=== PATIENT | female | born 1950 | race Caucasian/White ===

== ENCOUNTER → 2017-03-06 | Outpatient (CLI) | payer OTHER | LOC: BRMIMAGING 14:40 | PROVIDERS: ATTEND Family Medicine | DX: Z12.31 Encounter for screening mammogram for malignant neoplasm of breast (principal) | CPT/HCPCS: G0202 ==

== ENCOUNTER → 2017-03-16 | Outpatient (CLI) | payer OTHER | LOC: BRMIMAGING 08:55 | PROVIDERS: ATTEND Family Medicine | DX: Z12.39 Encounter for other screening for malignant neoplasm of breast (principal); R92.8 Other abnormal and inconclusive findings on diagnostic imaging of breast | CPT/HCPCS: 76641; G0206 ==

== ENCOUNTER → 2017-03-27 | Outpatient (CLI) | payer OTHER | LOC: CIMAGING 16:04 | PROVIDERS: ATTEND Family Medicine | DX: M25.511 Pain in right shoulder (principal); M89.9 Disorder of bone, unspecified | CPT/HCPCS: 73030-PO ==

== ENCOUNTER 2018-08-11 16:42 | Inpatient (IN) | payer OTHER ==
[2018-08-11] MEDS ORDERED: NS 500 ML IV ONE (16:46)
[2018-08-11 17:19] LABS: PLATELET COUNT 322 10^3/uL (150-400)
--- NOTE | 2018-08-11 17:19 | EDPHY ---
H & P Time Seen by Provider: 08/11/18 16:46 HPI/ROS: HPI Black stool, lightheaded. 68-year-old female by private vehicle with her son. This patient reports that since she has noticed she has had black tarry stools. She reports she has had some associated constipation as well. She reports that today she noticed that she is feeling much more fatigued and noticed that she was getting short of breath with any physical exertion. She denies any significant abdominal pain. She has no prior history of gastrointestinal bleeding. Not taking Pepto-Bismol at this time. She is not on any anticoagulant medications. She takes an aspirin daily. No other antiplatelet agents. ROS: Constitutional: No fever, no chills. As above. Eyes: No discharge. No changes in vision. ENT: No sore throat. No nasal congestion or rhinorrhea. Respiratory: No cough. No shortness of breath. Cardiac: No chest pain, no palpitations. Gastrointestinal: No abdominal pain, no vomiting, no diarrhea. As above. Genitourinary: No hematuria. No dysuria or increased frequency with urination. Musculoskeletal: No back pain. No neck pain. No myalgias or arthralgias. Skin: No rashes. Neurological: No headache. No focal weakness or altered sensation. Past medical history: Hyperlipidemia, hypertension. Social history: Nonsmoker. No alcohol. Here with her son. Physical Exam: General Appearance: Alert, no distress. This patient is responding to questions appropriately and in full sentences. This patient appears well- hydrated and well-nourished. Eyes: Pupils equal and round no pallor or injection. No lid edema, erythema or injection. Respiratory: There are no retractions, lungs are clear to auscultation with good air movement bilaterally. Cardiovascular: Regular rate and rhythm. No murmur. Gastrointestinal: Abdomen is soft and nontender, no masses, bowel sounds normal. No focal tenderness at McBurney's point. No Lockwood sign. Rectal exam: Normal tone. No gross blood. Black melenic stool. Neurological: Motor sensory function is grossly intact. Cranial nerves are normal. Gait is normal. Skin: Warm and dry, no rashes. Musculoskeletal: Neck is supple and nontender. Extremities are symmetrical. All joints range without pain or impingement. Psychiatric: No agitation. No depression. Database: EKG: EKG time is 5:32 p.m.; EKG shows a narrow complex normal sinus rhythm with a ventricular rate of 74. The [place], QRS, QT intervals are within normal limits. There are no ST-T wave changes indicative of ischemic or injury pattern. No evidence of right heart strain. Interpreted by me. Imaging: Procedures: Emergency department course: Triage vital signs reviewed. She is afebrile. Room air pulse oximetry is 91%. IV was placed x2. The patient was started on IV normal saline with 500 cc to be given over the next hour. The patient's presentation is concerning for upper gastrointestinal bleeding. Type and cross has been ordered. She will be given IV Protonix. 5:40 p.m., discussed case with on-call hospitalist Dr. Jj. Case discussed in detail. She accepts this patient for admission. We will call gastroenterology for consultation on this patient. 5:50 p.m., the patient was re-evaluated, resting comfortably at this time. Blood pressure is currently 107/67. paint dipper shows a narrow complex sinus rhythm with ventricular rate of 72. Results of her diagnostic workup in the emergency department were discussed with her and her son. I discussed admission. All of her questions were answered. She is receiving her IV Protonix. 5:55 p.m., spoke with on-call observation nurse Dr. Narvaez. He will see this patient on consultation. Plan initially for upper endoscopy tomorrow morning. Plan discussed with the hospitalist Dr. Jj. The patient's remaining emergency department course under my care has been uneventful. The patient was admitted to the hospitalist service in stable condition. Differential Diagnosis: The differential diagnosis on this patient includes but is not limited to upper gastrointestinal bleeding, duodenal versus gastric ulcer. This represents a partial list of diagnoses considered. These considerations are based on history , physical exam, past history, reassessment and diagnostic testing. Smoking Status: Former smoker Constitutional: Initial Vital Signs Temperature (C) 36.6 C 08/11/18 16:46 Heart Rate 84 08/11/18 16:46 Respiratory Rate 18 08/11/18 16:46 Blood Pressure 119/81 H 08/11/18 16:46 O2 Sat (%) 91 L 08/11/18 16:46 O2 Delivery Mode Room Air O2 (L/minute) 2 Allergies/Adverse Reactions: No Known Allergies Allergy (Unverified 08/11/18 16:48) Home Medications: Medication Instructions Recorded Acetaminophen [Tylenol ES 500 mg 500 mg PO DAILY 08/11/18 (*)] Aspirin EC [Aspirin EC 81 mg (*)] 81 mg PO DAILY 08/11/18 Hydrochlorothiazide [HCTZ (*)] 25 mg PO HS 08/11/18 Ibuprofen [Motrin (*)] 200 mg PO DAILY 08/11/18 Lisinopril [Zestril 10 mg (*)] 10 mg PO DAILY 08/11/18 Lovastatin 40 mg PO HS 08/11/18 Medical Decision Making - Data Points Laboratory Results: Laboratory Results 08/12/18 07:53 08/12/18 04:59 08/11/18 17:00 Patient ABO/Rh O POSITIVE Antibody Screen NEGATIVE Crossmatch IS Only See Detail Medications Given: Acetaminophen (Tylenol) 650 mg PO Q4HRS PRN PRN Reason: Pain, Mild/Fever, Can Take PO Stop: 02/07/19 18:26 Last Admin: 08/13/18 13:59 Dose: 650 mg Ferric Sodium Gluconate Complex 125 mg/ Sodium Chloride 110 mls @ 110 mls/hr IV DAILY RUPESH Stop: 02/08/19 16:59 Last Admin: 08/13/18 08:12 Dose: 110 mls Pantoprazole Sodium (Protonix) 40 mg PO BID RUPESH Stop: 02/08/19 20:59 Last Admin: 08/13/18 08:12 Dose: 40 mg Pravastatin Sodium (Pravachol) 40 mg PO HS [facility] Stop: 02/07/19 20:59 Last Admin: 08/12/18 20:39 Dose: 40 mg Discontinued Medications Sodium Chloride (Ns) 500 mls @ 0 mls/hr IV ONCE ONE; Wide Open PRN Reason: Protocol Stop: 08/11/18 16:47 Last Admin: 08/11/18 17:30 Dose: 500 mls Sodium Chloride (Ns) 1,000 mls @ 150 mls/hr IV CONT RUPESH Stop: 02/07/19 18:29 Last Admin: 08/11/18 22:28 Dose: 1,000 mls Lactated Ringer's (Lr) 1,000 mls @ 25 mls/hr IV ONCALL ONE Stop: 08/14/18 01:43 Last Admin: 08/12/18 10:15 Dose: 1,000 mls Midazolam HCl (Versed) 2 mg IVP ONCALL ONE Stop: 08/12/18 10:01 Last Admin: 08/12/18 10:13 Dose: 2 mg Pantoprazole Sodium (Protonix) 80 mg IVP EDNOW ONE Stop: 08/11/18 17:42 Last Admin: 08/11/18 17:56 Dose: 80 mg Pantoprazole Sodium (Protonix) 40 mg IVP Q6H RUPESH Stop: 02/07/19 19:59 Last Admin: 08/12/18 07:58 Dose: 40 mg Scopolamine HBr (Scopolamine Patch) 1 patch TD Q24H ONE Stop: 08/12/18 10:01 Last Admin: 08/12/18 10:12 Dose: 1 patch Departure - Departure Disposition: [facility] Acute Clinical Impression: Anemia, Gastrointestinal bleeding, upper Condition: Fair
[2018-08-11 17:25] LABS: INR 1.03 (0.83-1.16); PROTIME(PATIENT) 13.7 SEC (12.0-15.0)
[2018-08-11] MEDS ORDERED: PANTOPRAZOLE SODIUM 40 MG VIAL IVP ONE (17:41)
[2018-08-11] MEDS ORDERED: ONDANSETRON DISINTEGRATING 4 MG TAB PO PRN (18:27)
[2018-08-11] MEDS ORDERED: PROMETHAZINE HCL 25 MG/ML INJ IVP PRN (18:27)
[2018-08-11] MEDS ORDERED: HYDROCODONE/APAP 5/325 TAB PO PRN (18:27)
[2018-08-11] MEDS ORDERED: ONDANSETRON 4 MG/2 ML VIAL IVP PRN (18:27)
[2018-08-11] MEDS ORDERED: ALBUTEROL 3 ML DEYVIAL IH PRN (18:27)
[2018-08-11] MEDS ORDERED: ACETAMINOPHEN 325 MG TAB PO PRN (18:27)
[2018-08-11] MEDS ORDERED: oxyCODONE IR 5 MG TAB PO PRN (18:27)
[2018-08-11] MEDS ORDERED: NS 1,000 ML IV SCH (18:30)
--- NOTE | 2018-08-11 18:34 | PDGENHP ---
History and Physical - Chief Complaint black/tarry stool and fatigue - History of Present Illness 68 yo F with PMH that includes arthritis and GERD presents with c/o black/tarry stools for the last several days and starting today fatigue, DODSON and lightheadedness. Patient notes that she has never had similar issues in the past. She states that she takes ibuprofen and baby aspirin daily, but has cut way down on her ibuprofen from previously. She states that for years she was eating advil 'like it was candy' but this last March she was told by her PCP that she needs to cut down on ibuprofen and for that reason cut down to only 1 per day. She does have frequent symptoms of GERD that she has not taken anything for in the past. She currently notes some slight upper abdominal pain but otherwise denies pain. She otherwise notes that she looks pale and yellowish and continues to feel weak and lightheaded when she stands. History Information - Allergies/Home Medication List Allergies/Adverse Reactions: No Known Allergies Allergy (Unverified 08/11/18 16:48) Home Medications: Acetaminophen [Tylenol ES 500 mg (*)] 500 mg PO DAILY 08/11/18 [Last Taken Unknown] Aspirin EC [Aspirin EC 81 mg (*)] 81 mg PO DAILY 08/11/18 [Last Taken Unknown] Hydrochlorothiazide [HCTZ (*)] 25 mg PO HS 08/11/18 [Last Taken Unknown] Ibuprofen [Motrin (*)] 200 mg PO DAILY 08/11/18 [Last Taken Unknown] Lisinopril [Zestril 10 mg (*)] 10 mg PO DAILY 08/11/18 [Last Taken Unknown] Lovastatin 40 mg PO HS 08/11/18 [Last Taken Unknown] I have personally reviewed and updated: family history, medical history, social history, surgical history - Past Medical History arthritis, GERD, hypertension, hyperlipidemia - Surgical History Additional surgical history: TKA - Family History Positive for: non-pertinent - Social History Smoking Status: Former smoker Alcohol Use: Rarely Drug Use: None Additional social history: lives independently, accompanied by her son Review of Systems Review of Systems: ROS: 10pt was reviewed & negative except for what was stated in HPI & below Physical Exam Physical Exam: Temp Pulse Resp BP Pulse Ox 36.6 C 76 16 117/65 97 08/11/18 16:46 08/11/18 17:59 08/11/18 17:59 08/11/18 17:59 08/11/18 17:59 Constitutional: no apparent distress, appears nourished Eyes: PERRL, pale conjunctiva Ears, Nose, Mouth, Throat: moist mucous membranes, hearing normal Cardiovascular: regular rate and rhythym, no murmur, rub, or gallop, edema Respiratory: no respiratory distress, no rales or rhonchi Gastrointestinal: normoactive bowel sounds, soft, non-tender abdomen Genitourinary: no bladder tenderness Skin: warm, No normal color Musculoskeletal: full muscle strength, no muscle tenderness Neurologic: AAOx3 Psychiatric: interacting appropriately, not anxious, not encephalopathic Lab Data & Imaging Review 08/11/18 17:00 08/11/18 17:00 WBC 10.62 10^3/uL (3.80-9.50) H 08/11/18 17:00 RBC 2.77 10^6/uL (4.18-5.33) L 08/11/18 17:00 Hgb 8.8 g/dL (12.6-16.3) L 08/11/18 17:00 Hct 26.1 % (38.0-47.0) L 08/11/18 17:00 MCV 94.2 fL (81.5-99.8) 08/11/18 17:00 MCH 31.8 pg (27.9-34.1) 08/11/18 17:00 MCHC 33.7 g/dL (32.4-36.7) 08/11/18 17:00 RDW 13.2 % (11.5-15.2) 08/11/18 17:00 Plt Count 322 10^3/uL (150-400) 08/11/18 17:00 MPV 9.3 fL (8.7-11.7) 08/11/18 17:00 Neut % (Auto) 46.7 % (39.3-74.2) 08/11/18 17:00 Lymph % (Auto) 43.3 % (15.0-45.0) 08/11/18 17:00 Merrick % (Auto) 6.9 % (4.5-13.0) 08/11/18 17:00 Eos % (Auto) 1.7 % (0.6-7.6) 08/11/18 17:00 Baso % (Auto) 0.9 % (0.3-1.7) 08/11/18 17:00 Nucleat RBC Rel Count 0.0 % (0.0-0.2) 08/11/18 17:00 Absolute Neuts (auto) 4.96 10^3/uL (1.70-6.50) 08/11/18 17:00 Absolute Lymphs (auto) 4.60 10^3/uL (1.00-3.00) H 08/11/18 17:00 Absolute Monos (auto) 0.73 10^3/uL (0.30-0.80) 08/11/18 17:00 Absolute Eos (auto) 0.18 10^3/uL (0.03-0.40) 08/11/18 17:00 Absolute Basos (auto) 0.10 10^3/uL (0.02-0.10) 08/11/18 17:00 Absolute Nucleated RBC 0.00 10^3/uL (0-0.01) 08/11/18 17:00 Immature Gran % 0.5 % (0.0-1.1) 08/11/18 17:00 Immature Gran # 0.05 10^3/uL (0.00-0.10) 08/11/18 17:00 PT 13.7 SEC (12.0-15.0) 08/11/18 17:00 INR 1.03 (0.83-1.16) 08/11/18 17:00 APTT 23.4 SEC (23.0-38.0) 08/11/18 17:00 Sodium 137 mEq/L (135-145) 08/11/18 17:00 Potassium 3.6 mEq/L (3.5-5.2) 08/11/18 17:00 Chloride 106 mEq/L (97-110) 08/11/18 17:00 Carbon Dioxide 24 mEq/l (22-31) 08/11/18 17:00 Anion Gap 7 mEq/L (6-14) 08/11/18 17:00 BUN 35 mg/dL (7-23) H 08/11/18 17:00 Creatinine 1.1 mg/dL (0.6-1.0) H 08/11/18 17:00 Estimated GFR 50 08/11/18 17:00 Glucose 111 mg/dL (70-100) H 08/11/18 17:00 Calcium 8.9 mg/dL (8.5-10.4) 08/11/18 17:00 Total Bilirubin 0.2 mg/dL (0.1-1.4) 08/11/18 17:00 Conjugated Bilirubin 0.2 mg/dL (0.0-0.5) 08/11/18 17:00 Unconjugated Bilirubin 0.0 mg/dL (0.0-1.1) 08/11/18 17:00 AST 23 IU/L (14-46) 08/11/18 17:00 ALT 24 IU/L (9-52) 08/11/18 17:00 Alkaline Phosphatase 75 IU/L (38-126) 08/11/18 17:00 Total Protein 6.6 g/dL (6.3-8.2) 08/11/18 17:00 Albumin 3.9 g/dL (3.5-5.0) 08/11/18 17:00 Stool Occult Bld Scrn POSITIVE (NEGATIVE) H 08/11/18 17:10 Patient ABO/Rh O POSITIVE 08/11/18 17:00 Antibody Screen NEGATIVE 08/11/18 17:00 Visualized and Interpreted Chest x-ray results: Yes Chest X-Ray results: no infiltrate Visualized and Interpreted EKG results: Yes EKG Interpretation: Positive for: normal sinsus rhythm Assessment & Plan Assessment: Anemia (Acute) Gastrointestinal bleeding, upper (Acute) 68 yo F with PMH of arthritis and GERD presenting with black/tarry stools and acute blood loss anemia # UGIB: presumed upper bleed given dark tarry stools, has a hx of heavy NSAID use but recently has cut down, likely due to upper bleed due to ulcer or gastritis. GI consulted with plan to perform EGD in am. IV PPI. Discussed with patient that both asa and advil will be contraindicated for some time after this # acute blood loss anemia: in the setting of above and hgb of 8 from previously normal, will trend h/h and transfuse if hgb < 7, hct < 21 # GERD: patient has a history of frequent untreated GERD in the setting of heavy NSAID and daily asa use, plan for egd in am as above, will likely need to dc on ppi # TEVIN: in the setting of GI bleed and poor po intake and likely HD mediated, holding HCTZ/lisinopril/ibuprofen and IVF overnight, recheck in am # HTN: BP has been low since arrival in the setting of GI bleed and hypovolemia , will hold antihypertensives for now # HLD: continue statin # arthritis: for which she has been taking ibuprofen for a long time as above, currently managing with lower dose ibuprofen and tylenol, discussed with her that she may need to discuss with her PCP alternative meds for pain if ibuprofen no longer an option # observation status # patient new to my care. Care plan reviewed with ER doctor including plans for GI consultation. Further hx obtained from patients son present at bedside.
--- NOTE | 2018-08-11 19:06 | CPEKG ---
Test Reason : OPEN Blood Pressure : / mmHG Vent. Rate : 074 BPM Atrial Rate : 074 BPM P-R Int : 161 ms QRS Dur : 088 ms QT Int : 407 ms P-R-T Axes : 075 038 039 degrees QTc Int : 452 ms Sinus rhythm Abnormal R-wave progression, early transition Confirmed by Emperatriz Steel ([id number]) on 08/11/2018 7:05:14 PM Referred By: Emperatriz Steel Confirmed By:Emperatriz Steel
[2018-08-11] MEDS: PRAVASTATIN SODIUM 40 MG TAB PO SCH (20:44)
[2018-08-11] MEDS: PANTOPRAZOLE SODIUM 40 MG VIAL IVP SCH (20:44)
[2018-08-12] MEDS: PANTOPRAZOLE SODIUM 40 MG VIAL IVP SCH ×2 (01:50→07:58)
[2018-08-12 05:33] LABS: PLATELET COUNT 253 10^3/uL (150-400)
--- NOTE | 2018-08-12 09:15 | HOSPPROG ---
Hospitalist Progress Note Assessment/Plan: 68 yo F w likely UGIB ugib: nsaids plus daily asa on ppi now, not as outpt egd today ABLA: yes source is upper gi tranfused for hg less than 7 asa therapy: has htn and hyperlipidemia no strong FH or personal h/o cad reasonable to hold osteoarthritis: nsaids on hold dispo: obs Subjective: no further melena Objective: Vital Signs Temp Pulse Resp BP Pulse Ox 37 C 71 18 101/59 L 97 08/12/18 08:39 08/12/18 08:39 08/12/18 08:39 08/12/18 08:39 08/12/18 08:39 Laboratory Results 08/12/18 07:53 08/12/18 04:59 08/11/18 08/12/18 08/13/18 05:59 05:59 05:59 Intake Total 400 1350 Balance 400 1350 PT 13.7 SEC (12.0-15.0) 08/11/18 17:00 INR 1.03 (0.83-1.16) 08/11/18 17:00 - Physical Exam Constitutional: no apparent distress, appears nourished Eyes: PERRL, anicteric sclera Ears, Nose, Mouth, Throat: moist mucous membranes, hearing normal Cardiovascular: regular rate and rhythym, no murmur, rub, or gallop Respiratory: no respiratory distress, no rales or rhonchi Gastrointestinal: normoactive bowel sounds, soft, non-tender abdomen Genitourinary: No mcqueen in urethra Skin: warm, normal color Musculoskeletal: full muscle strength, no muscle tenderness Neurologic: AAOx3 Psychiatric: interacting appropriately ICD10 Worksheet Patient Problems: Problems Problem Status Onset Anemia Acute Gastrointestinal bleeding, upper Acute
[2018-08-12] MEDS ORDERED: fentaNYL 100 MCG/2 ML INJ ONE (09:43)
[2018-08-12] MEDS ORDERED: LR 1,000 ML IV ONE (09:44)
[2018-08-12] MEDS ORDERED: PROPOFOL 200 MG/20 ML VIAL ONE (09:44)
[2018-08-12] MEDS ORDERED: SUCCINYLCHOLINE CHLORIDE 200 MG/10 ML SYR IVP ONE (09:46)
[2018-08-12] MEDS ORDERED: ROCURONIUM 50 MG/5 ML VIAL ONE (09:46)
[2018-08-12] MEDS ORDERED: MIDAZOLAM 2 MG/2 ML VIAL IVP ONE (10:00)
[2018-08-12] MEDS ORDERED: SCOPOLAMINE HYDROBROMIDE 1 MG/3 DAYS PATCH TD ONE (10:00)
--- NOTE | 2018-08-12 10:02 | PDANEPAE ---
ANE Past Medical History - Cardiovascular History Hx Hypertension: Yes Hx Arrhythmias: No Hx Chest Pain: No Hx Coronary Artery / Peripheral Vascular Disease: No Hx CHF / Valvular Disease: No Hx Palpitations: No - Pulmonary History Hx COPD: No Hx Asthma/Reactive Airway Disease: No Hx Oxygen in Use at Home: No Hx Sleep Apnea: No Sleep Apnea Screening Result - Last Documented: Negative - Neurologic History Hx Cerebrovascular Accident: No Hx Seizures: No Hx Dementia: No - Endocrine History Hx Diabetes: No - GI History GERD: moderate Hx Gastrointestinal Disorders: Yes Gastrointestinal History Comment: UGIB - Surgical History Prior Surgeries: hysterectomy, right knee replacement, back surgery (cyst removal) ANE Review of Systems Review of Systems: - Exercise capacity Exercise capacity: >=4 METS ANE Patient History - Allergies Allergies/Adverse Reactions: No Known Allergies Allergy (Unverified 08/11/18 16:48) - Home Medications Home medications: home medication list seen and reviewed Home Medications: Acetaminophen [Tylenol ES 500 mg (*)] 500 mg PO DAILY 08/11/18 [Last Taken Unknown] Aspirin EC [Aspirin EC 81 mg (*)] 81 mg PO DAILY 08/11/18 [Last Taken Unknown] Hydrochlorothiazide [HCTZ (*)] 25 mg PO HS 08/11/18 [Last Taken Unknown] Ibuprofen [Motrin (*)] 200 mg PO DAILY 08/11/18 [Last Taken Unknown] Lisinopril [Zestril 10 mg (*)] 10 mg PO DAILY 08/11/18 [Last Taken Unknown] Lovastatin 40 mg PO HS 08/11/18 [Last Taken Unknown] - NPO status NPO Status: no food or drink >8 hours NPO Since - Liquids (Date): 08/11/18 NPO Since - Liquids (Time): 23:33 NPO Since - Solids (Date): 08/11/18 NPO Since - Solids (Time): 18:00 - Anes Hx Anes Hx: post operative nausea - Smoking Hx Smoking Status: Former smoker - Alcohol Use Alcohol Use: Rarely ANE Labs/Vital Signs - Labs Result Diagrams: 08/12/18 07:53 08/12/18 04:59 - Vital Signs Vital Signs: reviewed preoperatively; see RN documention for details Blood Pressure: 101/59 Heart Rate: 71 Respiratory Rate: 20 O2 Sat (%): 97 Height: 160.02 cm Weight: 77.111 kg ANE Physical Exam - Airway Neck exam: FROM Mallampati Score: Class 1 - Pulmonary Pulmonary: clear to auscultation - Cardiovascular Cardiovascular: regular rate and rhythym - ASA Status ASA Status: III ANE Anesthesia Plan Anesthesia Plan: general endotracheal anesthesia
[2018-08-12] MEDS ORDERED: PHENYLEPHRINE 10 MG/ML SDV ONE (10:14)
--- NOTE | 2018-08-12 10:26 | GCON ---
GI CONSULTATION REFERRING PHYSICIAN: Tammie Trejo MD REASON FOR CONSULTATION: Melena and fatigue. HISTORY OF PRESENT ILLNESS: The patient is a 68-year-old female with longstanding rheumatoid arthrit is, essential hypertension, and hyperlipidemia who has been on chronic NSAIDs for many years who has had intermittent "heartburn" symptoms over the last several weeks who presented with passage of black tarry stools several days ago, followed by fatigue, shortness of breath, and lightheadedness. She was found to be anemic with a hemoglobin of 8.8 on presentation, was admitted to the hospital for IV hydration and p.o. and IV PPI therapy. She does have no prior history of peptic ulcer disease. She has had no prior EGD. She did state she had a screening colonoscopy approximately 8 years ago in [facility], at which time she had "polyps" removed. She does not recall if these were adenomatous or hyper plastic. MEDICATIONS: Prior to admission: Ecotrin 81 mg p.o. daily, hydrochlorothiazide 25 mg p.o. q.h.s., i buprofen 200 mg p.o. daily, lisinopril 10 mg p.o. daily, lovastatin 40 mg p.o. q.h.s.. ALLERGIES: She has no known drug allergies. PAST MEDICAL HISTORY: Significant for essential hypertension, hyperlipidemia, rheumatoid arthritis, and intermittent heartburn. FAMILY HISTORY: Negative for peptic ulcer disease, GI malignancies, or GERD. SOCIAL HISTORY: She is a small former smoker. She rarely consumes alcohol. She is single, lives in [facility]. She has a son in the area. REVIEW OF SYSTEMS: Other than noted in the HPI were negative for comprehensive review of systems. EXAMINATION: VITAL SIGNS: Temperature 37.1, pulse 71 regular, blood pressure 101/59, respiratory ra te 18, O2 saturation 96% on room air. INTEGUMENT: Clear. HEENT: Head: Atraumatic, normocephalic. Pupils equal, round, reactive to light. EOMs intact. Sclerae nonicteric. Mucous membranes moist. Dentition good. Nares patent. NECK: Supple. Trachea midline. LYMPHATIC: No palpable cervical or axillary adenopathy. PULMONARY: Lungs are clear to percussion, auscultation. CARDIOVASCULAR: R egular rhythm, rate. Normal S1, S2 without murmur. Peripheral pulses strong bilaterally. No pedal edema. GASTROINTESTINAL: Abdomen supple. Positive bowel sounds. No liver, spleen tip palpable. T here is mild tenderness in the epigastrium to deep palpation without palpable mass or rebound. EXTRE MITIES: Without deformity. NEURO: Patient was alert, oriented x3. There are no focal neurologic d eficits. LABORATORY DATA: Hemoglobin on admission 8.8, with hydration this morning, hemoglobin 7.6, hematocri t 26.1 on admission, hematocrit 23.4 with hydration, platelets 253. Pro time 13.7, INR 1.03, PTT 23. 7. Electrolytes normal with exception of potassium 3.3, BUN was 35 on admission with a creatinine 1. 1, with hydration, BUN 21, creatinine 0.7, glucose is 94. LFTs normal. Stool is Hemoccult positive. IMPRESSION: 1. Melena with posthemorrhagic anemia and complaints of epigastric burning, rule out active peptic u lcer disease, rule out esophageal ulceration. 2. Hyperlipidemia. 3. Essential hypertension. 4. Rheumatoid arthritis. 5. Remote history of colon polyps of type unknown. RECOMMENDATIONS: 1. N.p.o. 2. IV PPI therapy. 3. Esophagogastroduodenoscopy with propofol anesthesia later today. 4. Will attempt to obtain her old colonoscopy records from her pet counselor in [place] from 8 years ago to determine appropriate followup interval for surveillance versus screening colonoscopy. /[id number]/MODL
--- NOTE | 2018-08-12 10:41 | GIREPORT ---
[facility] Surgical Services - Endoscopy Department Patient Name: Marika Ewing Procedure Date: 08/12/2018 9:44 AM Patient Type: Inpatient Attending MD/ ER Physician: Ramirez Narvaez MD Procedure: Upper GI endoscopy Indications: Melena, Acute post hemorrhagic anemia Providers: Ramirez Narvaez MD Medicines: General Anesthesia Complications: No immediate complications. Description of Procedure: After obtaining informed consent, the endoscope was passed under direct vision. Throughout the procedure, the patient's blood pressure, pulse, and oxygen saturations were monitored continuously. The Endoscope was intro duced through the mouth, and advanced to the third part of duodenum. The uppe r GI endoscopy was accomplished without difficulty. The patient tolerated th e procedure well. Findings: The examined esophagus was normal. A small hiatal hernia was present. Two non-bleeding cratered gastric ulcers with no stigmata of bleeding w ere found in the gastric antrum. The largest lesion was 10 mm in largest dimension. Biopsies were taken with a cold forceps for histology. The examined duodenum was normal. Estimated Blood Loss: Estimated blood loss: none. Post Op Diagnosis: - Normal esophagus. - Small hiatal hernia. - Non-bleeding gastric ulcers with no stigmata of bleeding. Biopsied. - Normal examined duodenum. Recommendation: - Return patient to hospital do for ongoing care. - Resume regular diet today. - Use Protonix (pantoprazole) 40 mg PO BID for 2 months. - [facility] - Await pathology results. - Repeat upper endoscopy in 2 months to check healing. - Will request records of patient's last colonoscopy in [place], [facility] and F/U as outpatient. - The findings and recommendations were discussed with the patient. Attending Participation: I personally performed the entire procedure. Ramirez Narvaez MD Ramirez Narvaez MD 08/12/2018 10:41:14 AM This report has been signed electronicallyRamirez Narvaez MD Number of Addenda: 0 Note Initiated On: 08/12/2018 9:44 AM [email or web address]
--- NOTE | 2018-08-12 10:50 | POSTANESTH ---
Post Anesthetic Evaluation Cardiovascular Status: Normal, Stable Respiratory Status: Normal, Stable Level of Consciousness/Mental Status: Can Participate in Eval Pain Control: Adequate, Prn Tx Ordered Nausea/Vomiting Control: Adequate, Prn Tx Ordered Complications Possibly Related to Anesthesia: None Noted
--- NOTE | 2018-08-12 11:19 | ASMTCASEMG ---
Living Arrangements What is your living Answers: Alone arrangement? Who do you live with? Type Of Residence What kind of residence do Answers: House you live in? Discharge Plan Comments Coordination Status Comments Notes: Patient is a 68yo female who has been admitted for UGIB, acute blood loss anemia, GERD, TEVIN, HTN, HLP, arthritis. Patient is going to surgery for EGD ENDO GI bleed. No therapies ordered at this time. Patient may d/c independently. CM available if D/C needs arise. Date Signed: 08/12/2018 11:18 AM Electronically Signed By:Sanjana Navarrete LCSW
[2018-08-12] MEDS: SODIUM FERRIC GLUCONAT/SUCROSE 125 MG in NS 100 ML IV SCH (17:05)
[2018-08-12] MEDS: PANTOPRAZOLE SODIUM 40 MG TAB PO SCH (20:39)
[2018-08-12] MEDS: PRAVASTATIN SODIUM 40 MG TAB PO SCH (20:39)
[2018-08-13] MEDS: PANTOPRAZOLE SODIUM 40 MG TAB PO SCH (08:12)
[2018-08-13] MEDS: SODIUM FERRIC GLUCONAT/SUCROSE 125 MG in NS 100 ML IV SCH (08:12)
--- NOTE | 2018-08-13 08:53 | HOSPPROG ---
Hospitalist Progress Note Assessment/Plan: 68 yo F w likely UGIB ugib: nsaids plus daily asa on ppi now, not as outpt egd today ABLA: yes source is upper gi tranfused for hg less than 7 will have her walk, do stairs today. if too dyspneic, will give blood fever: low grade no focal sx clear lung exam follow asa therapy: has htn and hyperlipidemia no strong FH or personal h/o cad reasonable to hold osteoarthritis: nsaids on hold dispo: likely home today > 30 minutes Subjective: no melena overnight. low grade temp. no urinary sx, cough Objective: Vital Signs Temp Pulse Resp BP Pulse Ox 37.1 C 71 16 108/59 L 94 08/13/18 08:20 08/13/18 08:20 08/13/18 08:20 08/13/18 08:20 08/13/18 08:20 Laboratory Results 08/13/18 06:15 08/12/18 04:59 08/12/18 08/13/18 08/14/18 05:59 05:59 05:59 Intake Total 400 2660 Output Total 0 Balance 400 2660 PT 13.7 SEC (12.0-15.0) 08/11/18 17:00 INR 1.03 (0.83-1.16) 08/11/18 17:00 - Physical Exam Constitutional: no apparent distress, appears nourished Eyes: PERRL, anicteric sclera Ears, Nose, Mouth, Throat: moist mucous membranes, hearing normal Cardiovascular: regular rate and rhythym, no murmur, rub, or gallop Respiratory: no respiratory distress, no rales or rhonchi, clear to auscultation Gastrointestinal: normoactive bowel sounds, soft, non-tender abdomen Genitourinary: No mcqueen in urethra Skin: warm, normal color Musculoskeletal: full muscle strength Neurologic: AAOx3 ICD10 Worksheet Patient Problems: Problems Problem Status Onset Anemia Acute Gastrointestinal bleeding, upper Acute
--- NOTE | 2018-08-13 11:08 | SOAPPROG ---
SOAP Progress Note Assessment/Plan: Assessment: 1. UGI bleed with anemia secondary to 's; stable. 2. LAVELL; s/p Iron infusion. Plan: 1. OK to D/C home on BID Protonix x 2 months and likely QAM PPI lifelong thereafter. 2. I will arrange outpatient EGD in two months to confirm healing. Ramirez Narvaez MD [phone] 08/13/18 11:09 Subjective: CC: bleed. Interval HPI: No melena since admit.Feeling well, up in room. Received IV iron today. Objective: Vital Signs Temp Pulse Resp BP Pulse Ox 37.1 C 71 16 108/59 L 94 08/13/18 08:20 08/13/18 08:20 08/13/18 08:20 08/13/18 08:20 08/13/18 08:20 Laboratory Results 08/13/18 06:15 08/12/18 04:59 08/12/18 08/13/18 08/14/18 05:59 05:59 05:59 Intake Total 400 2660 Output Total 0 Balance 400 2660 PT 13.7 SEC (12.0-15.0) 08/11/18 17:00 INR 1.03 (0.83-1.16) 08/11/18 17:00 Physical Exam - Physical Exam General Appearance: alert, no apparent distress Respiratory: lungs clear, normal breath sounds Abdomen: non-tender, soft Skin: warm/dry Neuro/Psych: alert, normal mood/affect, oriented x 3 ICD10 Worksheet Patient Problems: Problems Problem Status Onset Anemia Acute Gastrointestinal bleeding, upper Acute
--- NOTE | 2018-08-13 14:56 | PDMN ---
Medical Necessity Medical necessity: MCG: M180 GIB upper - pt presents with c/o black tarry stools for last several days. fatigue, DODSON, lightheadedness. + stool occult bld. EGD performed. status changed to INPT for dropping H/H ( 8.8/26.1, 7.6/23.3, 7.0/21.8 ) req further monitoring and tx.
[2018-08-13 16:56] VITALS: BP 97/55
--- NOTE | 2018-08-13 17:25 | GDS ---
[f rep st] DISCHARGE SUMMARY DISCHARGE DIAGNOSES: 1. Acute blood loss anemia secondary to upper gastrointestinal bleed. 2. Gastric ulcers without active bleeding. 3. Likely iron deficiency. 4. Hypertension. 5. Osteoarthritis, on nonsteroid antiinflammatory drug therapy. 6. Acute kidney injury secondary to dehydration. HOSPITAL COURSE: Please see admission history by Dr. Tammie Trejo. The patient presented with [facility] and was found to have a hemoglobin of 8.8. Her baseline from a couple years ago of 15. She was placed on IV PPI and underwent endoscopy which revealed 2 nonbleeding gastric ulcers. She takes ibu profen for osteoarthritis and aspirin for primary prevention. The patient received 2 doses of IV iro n. She stopped passing melena. She was not having hematemesis. She did not have an elevated BUN. The patient received a unit of packed cells when she was found to be dyspneic and weak, ambulating wi th stairs. She was prescribed 2 months of b.i.d. PPI with outpatient followup. She will also see GI in followup for surveillance endoscopy in 6 weeks. /[id number]/MODL
== END 2018-08-13 18:58 | disposition home or self-care (01) | DRG 378 ==
LOC: INTOOBSV 17:49 → F3E 19:54 → OBSVTOIN 08-12 16:38
PROVIDERS: ADMIT Internal Medicine; ATTEND Internal Medicine
PROC: 30233N1 Transfusion of Nonautologous Red Blood Cells into Peripheral Vein, Percutaneous Approach (ICD-10-PCS; 2018-08-12)
PROC: 0DB68ZX Excision of Stomach, Via Natural or Artificial Opening Endoscopic, Diagnostic (ICD-10-PCS; principal; 2018-08-12 10:00)
DX: K25.4 Chronic or unspecified gastric ulcer with hemorrhage (principal); D62 Acute posthemorrhagic anemia; N17.9 Acute kidney failure, unspecified; E86.0 Dehydration; R50.9 Fever, unspecified; M19.90 Unspecified osteoarthritis, unspecified site; I10 Essential (primary) hypertension; K21.9 Gastro-esophageal reflux disease without esophagitis; E78.5 Hyperlipidemia, unspecified; Z87.891 Personal history of nicotine dependence; Z86.010 Personal history of colon polyps
CPT/HCPCS: 96374; G0378; J0330; J2250; J2370; J2704; J2916; J3010; P9016